=== PATIENT | male | born 1945 | race Two or more races ===

== ENCOUNTER 2024-09-29 07:16 | Day surgery (SDC) | payer OTHER ==
[2024-09-14 12:47] VITALS: BP 160/89
[~2024-09-29] VITALS: Ht 170.2 cm; Wt 79.4 kg
[~2024-09-29 07:16] MED LIST: EZALLOR SPRINKL10 MG PO; FINASTERIDE5 MG PO; LOTREL 5-20 MG1 CAP PO; TAMS0.4C PO
[2024-09-29] MEDS ORDERED: METRONIDAZOLE/SODIUM CHLORIDE 500 MG/100 ML PIGGYBACK IV ONE (13:38)
[2024-09-29] MEDS ORDERED: CEFTRIAXONE SODIUM 2,000 MG VIAL ONE (13:38)
[2024-09-29] MEDS ORDERED: COLACE100 MG PO (13:38)
[2024-09-29] MEDS ORDERED: NEURONTIN300 MG PO (13:38)
[2024-09-29] MEDS ORDERED: TYLENOL ARTHRI650 MG PO (13:38)
[2024-09-29] MEDS ORDERED: POVIDONE-IODINE 118 ML BOTT TOP ONE (13:55)
[2024-09-29] MEDS ORDERED: BUPIVACAINE HCL/Mpf 0.5% 10ML VIAL ONE (13:55)
[2024-09-29] MEDS ORDERED: DIBUCAINE 30 GM TUBE ONE (13:55)
[2024-09-29] MEDS ORDERED: LIDOCAINE HCL 1%/EPINEPHRINE 20ML VIAL IJ ONE (13:55)
[2024-09-29] MEDS ORDERED: HEMOSTATIC MATRIX 1 KIT KIT TOP ONE (13:55)
== END 2024-09-29 18:40 | disposition home or self-care (01) ==
LOC: CIR.AMB 07:16
PROVIDERS: ATTEND Surgery
DX: D12.9 Benign neoplasm of anus and anal canal (principal); K64.2 Third degree hemorrhoids; K62.89 Other specified diseases of anus and rectum; K62.5 Hemorrhage of anus and rectum; Z91.041 Radiographic dye allergy status; I10 Essential (primary) hypertension